=== PATIENT | female | born 1965 | race Asian ===

== ENCOUNTER 2019-02-10 03:30 | Emergency (ER) | payer SELFPAY ==
[~2019-02-10] VITALS: Ht 144.8 cm; Wt 55.3 kg
[2019-02-10 03:46] VITALS: BP_SYST 138
--- NOTE | 2019-02-10 03:46 | NUR ---
Pt placed to ER bed 07. Pt c/o sinus and nasal congestion with difficulty breathing out of nose x 5 days. Airway patent, respirations even and non-labored.
--- NOTE | 2019-02-10 03:50 | NUR ---
Dr. Heck at bedside.
[2019-02-10 04:02] VITALS: BP_SYST 128
--- NOTE | 2019-02-10 04:02 | NUR ---
Patient given written and verbal discharge instructions and verbalizes understanding. ER MD discussed with patient the results and treatment provided. Patient in stable condition. ID arm band removed. Rx of Flonase, Amoxicillin, Promethizine DM given. Patient educated on pain management and to follow up with PMD. Pain Scale 0/10. Opportunity for questions provided and answered. Medication side effect fact sheet provided.
== END 2019-02-10 04:02 | disposition home or self-care (01) ==
LOC: SED 03:30
DX: J01.90 Acute sinusitis, unspecified (principal)
CPT/HCPCS: 99283

== ENCOUNTER 2019-06-06 09:01 | Emergency (ER) | payer MEDICAID ==
[~2019-06-06] VITALS: Ht 149.9 cm; Wt 54.4 kg
[2019-06-06 09:02] VITALS: BP_SYST 148
[2019-06-06] MEDS ORDERED: MORPHINE 4 MG/ML INJ. SYRINGE IVP ONE (09:45)
[2019-06-06 09:49] LABS: BASOPHILS % (AUTO) 0.4 % (0.0-2.0); EOSINOPHILS # (AUTO) 0.4 K/uL (0.0-0.4); HEMATOCRIT 40.7 % (36-48); HEMOGLOBIN 13.9 g/dL (12.0-16.0); LYMPHOCYTES % (AUTO) 15.7 % (20.5-51.5); MEAN CORPUSCULAR HEMOGLOBIN 32 pg (27-31); MEAN CORPUSCULAR HGB CONC 34 % (32-36); MEAN CORPUSCULAR VOLUME 92 fL (79.0-98.0); MONOCYTES # (AUTO) 0.5 K/uL (0.0-1.0); MONOCYTES % (AUTO) 7.1 % (1.7-9.3); NEUTROPHILS # (AUTO) 4.7 K/uL (1.8-7.7); NEUTROPHILS % (AUTO) 70.8 % (40.0-70.0); PLATELET COUNT (AUTO) 209 K/uL (130-430); RED BLOOD CELL COUNT(AUTO) 4.41 MIL/uL (4.2-6.2); RED CELL DISTRIBUTION WIDTH 13.6 % (9.0-15.0); WHITE BLOOD COUNT (AUTO) 6.7 K/uL (4.8-10.8)
[2019-06-06 10:06] LABS: ANION GAP 9 (5-15); CALCIUM 8.6 mg/dL (8.4-11.0); CHLORIDE 107 mmol/L (98-107); CREATININE 0.78 mg/dL (0.55-1.30); GLUCOSE 121 mg/dL (70-99); POTASSIUM 3.6 mmol/L (3.5-5.1); SODIUM SERUM 141 mmol/L (136-145); UREA NITROGEN, BLOOD 14 mg/dL (8-21)
[2019-06-06 10:14] LABS: ALANINE AMINOTRANSFERASE 36 U/L (12-78); ALBUMIN 3.5 g/dL (3.4-4.8); ASPARTATE AMINOTRANSFERASE 40 U/L (10-37); TOTAL BILIRUBIN 0.5 mg/dL (0.0-1.0)
[2019-06-06 10:18] LABS: GFR AFRICAN AMERICAN 99 mL/min (>90)
[2019-06-06 10:59] VITALS: BP_SYST 144
== END 2019-06-06 10:59 | disposition home or self-care (01) ==
LOC: SED 09:01
DX: R07.89 Other chest pain (principal)
CPT/HCPCS: 36415; 71045; 80053; 84484; 85025; 93005; 96374; 99284; J2270

== ENCOUNTER 2020-11-09 20:27 | Emergency (ER) | payer MEDICAID, OTHER ==
[~2020-11-09] VITALS: Ht 144.8 cm; Wt 55.3 kg
[2020-11-09 21:35] VITALS: BP_SYST 130
[2020-11-09] MEDS ORDERED: ONDANSETRON HCL 4 MG/2 ML VIAL IVP ONE (21:45)
[2020-11-09] MEDS ORDERED: LR 1,000 ML IV ONE (21:45)
[2020-11-09] MEDS ORDERED: MECLIZINE HCL 25 MG TABLET (ANITVERT) PO ONE (21:45)
[2020-11-09] MEDS ORDERED: ACETAMINOPHEN 325 MG TABLET PO ONE (22:00)
[2020-11-09] MEDS ORDERED: ACETAMINOPHEN 325 MG TABLET ONE (22:38)
[2020-11-09 23:24] LABS: BASOPHILS # (AUTO) 0.1 K/uL (0.0-0.2); BASOPHILS % (AUTO) 0.6 % (0.0-2.0); EOSINOPHILS # (AUTO) 0.3 K/uL (0.0-0.4); EOSINOPHILS % (AUTO) 3.5 % (0.0-4.0); HEMATOCRIT 43.9 % (36-48); MEAN CORPUSCULAR HEMOGLOBIN 31 pg (27-31); MEAN CORPUSCULAR HGB CONC 34 % (32-36); MEAN CORPUSCULAR VOLUME 92 fL (79.0-98.0); MONOCYTES # (AUTO) 0.8 K/uL (0.0-1.0); MONOCYTES % (AUTO) 9.3 % (1.7-9.3); NEUTROPHILS # (AUTO) 4.2 K/uL (1.8-7.7); NEUTROPHILS % (AUTO) 50.6 % (40.0-70.0); PLATELET COUNT (AUTO) 291 K/uL (130-430); RED BLOOD CELL COUNT(AUTO) 4.79 MIL/uL (4.2-6.2); RED CELL DISTRIBUTION WIDTH 13.3 % (9.0-15.0); WHITE BLOOD COUNT (AUTO) 8.3 K/uL (4.8-10.8)
[2020-11-09 23:25] LABS: ANION GAP 9 (5-15); CALCIUM 9.7 mg/dL (8.4-11.0); CHLORIDE 104 mmol/L (98-107); CREATININE 0.69 mg/dL (0.55-1.30); GLUCOSE 104 mg/dL (70-99); POTASSIUM 3.4 mmol/L (3.5-5.1); SODIUM SERUM 138 mmol/L (136-145); UREA NITROGEN, BLOOD 12 mg/dL (8-21)
[2020-11-09 23:26] LABS: GFR AFRICAN AMERICAN 114 mL/min (>90)
[2020-11-09 23:34] LABS: ALANINE AMINOTRANSFERASE 24 U/L (12-78); ALBUMIN 4.1 g/dL (3.4-4.8); ASPARTATE AMINOTRANSFERASE 29 U/L (10-37); LIPASE 117 U/L (73-393); TOTAL BILIRUBIN 0.7 mg/dL (0.0-1.0)
[2020-11-10 00:18] LABS: BILIRUBIN,URINE NEGATIVE (NEGATIVE); BLOOD, URINE NEGATIVE (NEGATIVE); COLOR,URINE YELLOW (YELLOW); GLUCOSE,URINE NEGATIVE (NEGATIVE); KETONES,URINE NEGATIVE (NEGATIVE); LEUKOCYTE ESTERASE ,URINE TRACE (NEGATIVE); NITRITE, URINE NEGATIVE (NEGATIVE); PH,URINE 5.5 (5.0-8.0); PROTEIN URINE NEGATIVE (NEGATIVE); UROBILINOGEN,URINE 0.2 (0.2-1.0)
[2020-11-10 00:20] LABS: CLARITY/URINE SLIGHTLY HAZY (CLEAR)
[2020-11-10 00:27] LABS: BACTERIA,URINE FEW /HPF (None Seen); RBC,URINE 0-3 /HPF (0-3)
[2020-11-10 01:44] VITALS: BP_SYST 130
[2020-11-10] MEDS ORDERED: LR 1,000 ML IV ONE (09:45)
== END 2020-11-10 01:44 | disposition home or self-care (01) ==
LOC: SED 20:27
DX: H81.399 Other peripheral vertigo, unspecified ear (principal); R11.10 Vomiting, unspecified; R51.9 Headache, unspecified; G47.00 Insomnia, unspecified; F43.9 Reaction to severe stress, unspecified; Z88.8 Allergy status to other drugs, medicaments and biological substances
CPT/HCPCS: 36415; 70450; 71045; 76376; 80053; 81000; 83690; 84484; 85025; 87086; 93005; 96361; 96374; 99285; J2405; J8597; 96365; 96367; 96375

== ENCOUNTER 2024-05-21 13:58 | Emergency (ER) | payer OTHER ==
[~2024-05-21] VITALS: Ht 144.8 cm; Wt 49.9 kg
[~2024-05-21 13:58] MED LIST: IBUP-1969 PO; TRAM50TA PO
[2024-05-21 14:00] VITALS: BP_SYST 141; PULSE 58; RESP 18; TEMP 98.8; O2SAT 96
[2024-05-21] MEDS: ONDANSETRON 4 MG ODT TAB PO ONE (15:10)
[2024-05-21 15:24] LABS: BASOPHILS # (AUTO) 0.1 K/uL (0.0-0.2); BASOPHILS % (AUTO) 0.5 % (0.0-2.0); EOSINOPHILS # (AUTO) 0.1 K/uL (0.0-0.4); EOSINOPHILS % (AUTO) 1.1 % (0.0-4.0); HEMATOCRIT 44.4 % (36-48); HEMOGLOBIN 15.1 g/dL (12.0-16.0); LYMPHOCYTES # (AUTO) 2.3 K/uL (1.0-5.5); LYMPHOCYTES % (AUTO) 19.3 % (20.5-51.5); MEAN CORPUSCULAR HEMOGLOBIN 31 pg (27-31); MEAN CORPUSCULAR HGB CONC 34 % (32-36); MEAN CORPUSCULAR VOLUME 92 fL (79.0-98.0); MONOCYTES % (AUTO) 8.1 % (1.7-9.3); NEUTROPHILS # (AUTO) 8.6 K/uL (1.8-7.7); RED BLOOD CELL COUNT(AUTO) 4.82 MIL/uL (4.2-6.2); RED CELL DISTRIBUTION WIDTH 13.8 % (9.0-15.0); WHITE BLOOD COUNT (AUTO) 12.1 K/uL (4.8-10.8)
[2024-05-21 15:40] LABS: ALANINE AMINOTRANSFERASE 78 U/L (12-78); ALBUMIN 4.3 g/dL (3.4-4.8); ANION GAP 8 (5-15); ASPARTATE AMINOTRANSFERASE 42 U/L (10-37); CARBON DIOXIDE 30 mmol/L (23-29); CHLORIDE 100 mmol/L (98-107); CREATININE 0.76 mg/dL (0.55-1.30); GFR AFRICAN AMERICAN 101 mL/min (>90); GLUCOSE 112 mg/dL (74-106); POTASSIUM 3.9 mmol/L (3.5-5.1); SODIUM SERUM 138 mmol/L (136-145); TOTAL BILIRUBIN 0.9 mg/dL (0.0-1.0); TOTAL PROTEIN, SERUM 8.6 g/dL (6.4-8.3); UREA NITROGEN, BLOOD 11 mg/dL (8-21)
[2024-05-21 15:45] LABS: GFR NON AFRICAN-AMERICAN 83 mL/min (>90)
[2024-05-21 15:46] LABS: PROTHROMBIN TIME 10.2 SECS (9.5-12.5)
[2024-05-21 15:51] LABS: AMYLASE 63 U/L (0-100); BILIRUBIN,DIRECT 0.2 mg/dL (0.0-0.3); LACTATE DEHYDROGENASE 221 U/L (81-234); LIPASE 35 U/L (16-77)
[2024-05-21 15:54] LABS: PLATELET COUNT (AUTO) 253 K/uL (130-430)
[2024-05-21] MEDS: NACL 0.9% 1,000 ML IV ONE (15:57)
[2024-05-21 16:25] LABS: ACETONE, SERUM NEGATIVE (NEGATIVE)
[2024-05-21] MEDS ORDERED: IBUP-1969 PO (17:06)
[2024-05-21] MEDS ORDERED: ONDA-8 TL (17:06)
[2024-05-21 17:24] VITALS: BP_SYST 136; PULSE 74; RESP 22; O2SAT 99
[2024-05-21] MEDS ORDERED: TRAZ-250 PO (17:28)
== END 2024-05-21 17:27 | disposition home or self-care (01) ==
LOC: SED 13:58
DX: A05.9 Bacterial foodborne intoxication, unspecified (principal); Z20.822 Contact with and (suspected) exposure to COVID-19; R53.1 Weakness; Z88.8 Allergy status to other drugs, medicaments and biological substances; Z79.899 Other long term (current) drug therapy
CPT/HCPCS: 99284; 96360; 87426; 80076; 80048; 82009; 82150; 83615; 83690; 85025; 85610; 85730; 84484; 36415; 93005; 83605; 82397; Q0162; J7030

== ENCOUNTER 2024-07-07 00:07 | Emergency (ER) | payer OTHER ==
[~2024-07-07] VITALS: Ht 144.8 cm; Wt 53.5 kg
[~2024-07-07 00:07] MED LIST changes: +ONDA-8 TL; +TRAZ-250 PO
[2024-07-07 00:15] VITALS: BP_SYST 135; PULSE 55; RESP 16; TEMP 97.1; O2SAT 97
[2024-07-07] MEDS: KETOROLAC TROMETHAMINE 30 MG VIAL IM ONE (01:37)
[2024-07-07] MEDS ORDERED: TRAZ-250 PO (02:37)
[2024-07-07] MEDS ORDERED: IBUP-1969 PO (02:37)
[2024-07-07] MEDS ORDERED: CYCL10TA24 PO (02:37)
[2024-07-07 02:50] VITALS: BP_SYST 140; PULSE 51; RESP 18; TEMP 98.6; O2SAT 97
== END 2024-07-07 02:50 | disposition home or self-care (01) ==
LOC: SED 00:07
DX: S29.011A Strain of muscle and tendon of front wall of thorax, initial encounter (principal); Z88.8 Allergy status to other drugs, medicaments and biological substances; Z79.899 Other long term (current) drug therapy; Z79.2 Long term (current) use of antibiotics; X58.XXXA Exposure to other specified factors, initial encounter; Y93.89 Activity, other specified; Y92.89 Other specified places as the place of occurrence of the external cause; Y99.8 Other external cause status
CPT/HCPCS: 99284; 71045; 71100; 96372; J1885